=== PATIENT | female | born 1995 | race Two or more races ===

== ENCOUNTER 2016-09-04 22:15 | Emergency (ER) | payer MEDICAID, OTHER ==
[2016-09-04 23:37] VITALS: BP 115/84
== END 2016-09-05 02:09 | disposition left against medical advice (07) ==
LOC: ER 22:15
DX: Z53.9 Procedure and treatment not carried out, unspecified reason (principal); R11.10 Vomiting, unspecified

== ENCOUNTER 2018-06-01 12:54 | Emergency (ER) | payer MEDICAID, OTHER ==
--- NOTE | 2018-06-01 14:32 | ER Document Report ---
HPI - HPI Time Seen by Provider: 06/01/18 14:05 Pain Level: 4 Notes: Patient is a otherwise healthy 22-year-old female who presents with chief complaint of fever, cough, sore throat and congestion that started on Thursday. Patient reports she has been taking Motrin at home which resolves a fever however after a few hours the fever comes back. Patient denies any nausea, vomiting or diarrhea. - CONSTITUTIONAL Constitutional: REPORTS: Fever, Chills - NEURO Neurology: REPORTS: Headache - RESPIRATORY Respiratory: REPORTS: Coughing - REPRODUCTIVE Reproductive: DENIES: : Past Medical History - General Information source: Patient - Social History Smoking Status: Never Smoker Frequency of alcohol use: None Drug Abuse: None Family History: Reviewed & Not Pertinent Patient has suicidal ideation: No Patient has homicidal ideation: No - Medical History Medical History: Negative Renal/ Medical History: Denies: Hx Peritoneal Dialysis Past Surgical History: Reports: Hx Oral Surgery - Immunizations Immunizations up to date: Yes Vertical Provider Document - CONSTITUTIONAL Notes: PHYSICAL EXAMINATION: GENERAL: Well-appearing, well-nourished and in no acute distress. HEAD: Atraumatic, normocephalic. EYES: Pupils equal round extraocular movements intact, conjunctiva are normal. ENT: Nares patent NECK: Normal range of motion LUNGS: No respiratory distress Musculoskeletal: Normal range of motion NEUROLOGICAL: Normal speech, normal gait. PSYCH: Normal mood, normal affect. SKIN: Warm, Dry, normal turgor, no rashes or lesions noted. - INFECTION CONTROL TRAVEL OUTSIDE OF THE [place] IN LAST 30 DAYS: No Course - Re-evaluation Re-evalutation: 06/01/18 14:32 Examination is unremarkable, nurses sent flu test down, awaiting results. 06/01/18 14:57 Influenza is negative. Patient will be discharged home with upper respiratory illness. - Vital Signs Vital signs: Temp Pulse Resp BP Pulse Ox 98.3 F 82 20 110/69 100 06/01/18 13:34 06/01/18 13:34 06/01/18 13:34 06/01/18 13:34 06/01/18 13:34 Discharge - Discharge Clinical Impression: Viral upper respiratory illness Condition: Stable Disposition: HOME, SELF-CARE Additional Instructions: Your symptoms are most likely due to a viral infection it should resolve over the next 7-14 days. You should take [id number] guanfacine per bottle instructions to help thin the mucus. For nasal congestion: I would recommend that you get [id number] oxymetazoline also known is afrin. Use only per bottle instructions and be sure to never use this for more than 3 days if you can develop severe rebound congestion. You may also use tylenol or ibuprofen as needed for aches and thorat discomfort. Please be sure to drink plenty of fluids and get rest. Return to the emergency department he began having difficulty breathing, chest pain, persistent vomiting, or any other symptoms that are concerning to you. Forms: Return to Work
[2018-06-01 14:47] LABS: A TYPE INFLUENZA AG NEGATIVE (NEGATIVE); B INFLUENZA AG NEGATIVE (NEGATIVE)
[2018-06-01 15:28] VITALS: BP 128/77
== END 2018-06-01 15:27 | disposition home or self-care (01) ==
LOC: ER 12:54
DX: J06.9 Acute upper respiratory infection, unspecified (principal); B97.89 Other viral agents as the cause of diseases classified elsewhere; R50.9 Fever, unspecified; R05 Cough; J02.9 Acute pharyngitis, unspecified; R09.81 Nasal congestion
CPT/HCPCS: 87804; 99283